=== PATIENT | female | born 1975 | race Caucasian/White ===

== ENCOUNTER → 2020-02-04 | Outpatient (CLI) | payer OTHER ==
--- NOTE | 2020-02-04 13:13 | US ---
EXAM DESCRIPTION: 3D Diagnostic, Bilateral (accession [id number]), Breast,Bilateral (accession [id number]): Ultrasound CLINICAL HISTORY: 44 yearsFemaleLEFT BREAST MASS . Left breast nipple retraction x1 month. Prior nipple changes unknown duration. Patient adopted with no record of family history. Menarche age 14. Childbirth age 38. Premenopausal. No HRT . Lifetime risk of developing breast cancer (Tyrer-Cuzick model)(%): 12.0. COMPARISON: Baseline study at this facility. TECHNIQUE: Bilateral LM, CC, and MLO projection full-field images, digital tomosynthesis technique. Bilateral 2-D digital full-field images: LM, CC, and MLO projections. CAD available for 2-D images.. Transcutaneous scanning of the bilateral subareolar breast utilizing vidal-scale and Doppler modes. Scanning performed by the senior sales assistant : Observation by Dr. Mcdermott. FINDINGS: The breast parenchymal density pattern is: Heterogeneously dense breast tissue, which may obscure small masses. No skin thickening or nipple retraction right breast. Minimal skin thickening and nipple retraction left breast. Bilateral scattered solitary microcalcifications. An Irregular mass mostly lobulated in the retroareolar left breast. This is palpable with an adjacent triangular skin marker. Spiculations and architectural distortion are present. The central mass may be approximately 3 cm in width. No definite microcalcifications. Minimal architectural distortion/focal asymmetry at 6:00 retroareolar right breast. No abnormal microcalcifications. Ultrasound: Scanning of the subareolar breast bilaterally. Right breast: Mostly fibroglandular tissues in the subareolar right breast with minimal fatty replacement. No dominant solid mass, no fluid collection, no distinct cyst, and no microcalcifications. No overlying skin changes. Left breast: Scanning subareolar breast over the palpable mass. Irregular mostly hypoechoic mass with spiculated margins and finger like projections. Wider than tall orientation. Measurements approximately 2.4 x 2.4 cm. Minimal vascularity in the periphery. Posterior shadowing from the margins with central mass mixed enhancement and shadowing. Skin retraction and thickening overlying the mass. IMPRESSION: 1. BI-RADS Category 4: SUSPICIOUS - Subcategory 4B: Moderate Suspicion For Malignancy. 2. RECOMMENDATIONS: Tissue diagnosis is recommended if there are no clinical contraindications. The FINDINGS and follow up were discussed in person with the patient following the examination. Written communication explaining the IMPRESSION and follow-up, will be mailed to the patient and referring health care provider. CRITICAL COMMUNICATION: The critical value was communicated by text message from Dr. Mcdermott at approximately 1035 hours, to Dr. Chandrakant Vásquez with text acknowledgment by Dr. Vásquez at approximately 1037 hours, on February 04, 2020.. Electronically signed by: Aric Mcdermott MD 02/04/2020 1:11 PM CDT
== END ==
LOC: MAMMO 10:00
PROVIDERS: ATTEND Family Medicine
DX: N63.42 Unspecified lump in left breast, subareolar (principal)
CPT/HCPCS: 76641; 77066; G0279

== ENCOUNTER → 2020-02-06 | Outpatient (CLI) | payer OTHER ==
--- NOTE | 2020-02-09 08:25 | US ---
EXAM DESCRIPTION: Biopsy/Needle Guidance: ULTRASOUND. CLINICAL HISTORY: 44 years Female LEFT BREAST MASS COMPARISON: None Available. TECHNIQUE: Procedure performed by referring physician Dr. Vásquez during ultrasound-guided needle core biopsy left breast. Transcutaneous scanning: Kimble-scale and Doppler modes.. Mass well demonstrated In the retroareolar left breast with skin thickening. Echogenic needle seen within the mass. No complicating process is demonstrated. Please refer to physician's procedure note for specific details. Permanent images of this procedure are stored in the patient's medical record. IMPRESSION: Successful ultrasound guided needle core biopsy performed by Dr. Vásquez of retroareolar left breast mass. Pathology results pending at remote laboratory. Electronically signed by: Aric Mcdermott MD 02/09/2020 8:24 AM CDT
== END ==
LOC: US 12:57
PROVIDERS: ATTEND Surgery
DX: N63.42 Unspecified lump in left breast, subareolar (principal)